=== PATIENT | male | born 1990 | race Two or more races ===

== ENCOUNTER 2024-04-15 16:36 | Emergency (ER) | payer OTHER ==
[~2024-04-15] VITALS: Ht 172.7 cm; Wt 87.0 kg
[2024-04-15 16:42] VITALS: TEMP 98.9
[2024-04-15] MEDS ORDERED: DIVA-153 PO (16:42)
[2024-04-15] MEDS ORDERED: DIPH-1243 PO (16:42)
[2024-04-15 17:40] LABS: BASOPHILS % (AUTO) 1.1 % (0.0-2.0); EOSINOPHILS % (AUTO) 1.3 % (1.0-6.0); LYMPHOCYTES # (AUTO) 1.6 K/uL (1.0-4.8); LYMPHOCYTES % (AUTO) 16.5 % (22.0-44.0); MEAN CORPUSCULAR HEMOGLOBIN 33.1 pg (26.0-34.0); MEAN CORPUSCULAR HGB CONC 33.3 G/dL (31.0-37.0); MEAN CORPUSCULAR VOLUME 99 fL (80-100); MONOCYTES # (AUTO) 0.9 K/uL (0.1-1.0); MONOCYTES % (AUTO) 9.3 % (2.0-9.0); NEUTROPHILS # (AUTO) 6.9 K/uL (1.8-7.7); NEUTROPHILS % (AUTO) 71.8 % (40.0-70.0); PLATELET COUNT (AUTO) 288 K/uL (150-450); RED BLOOD CELL COUNT(AUTO) 3.93 MIL/uL (4.50-5.90); WHITE BLOOD COUNT (AUTO) 9.6 K/uL (4.5-11.0)
[2024-04-15 17:51] LABS: ANION GAP 3 mmol/L (8-16); CARBON DIOXIDE 32 mmol/L (22-29); CHLORIDE 105 mmol/L (98-107); CREATININE 0.72 mg/dL (0.60-1.30); GLOMERULAR FILTR. RATE CALC > 60 mL/min (>60); GLUCOSE,RANDOM 109 mg/dL (70-110); POTASSIUM 3.7 mmol/L (3.5-5.1); SODIUM SERUM 140 mmol/L (136-145); UREA NITROGEN, BLOOD 15 mg/dL (7-18)
[2024-04-15 17:57] LABS: ALANINE AMINOTRANSFERASE 27 U/L (12-78); ALBUMIN 3.2 g/dL (3.4-5.0); ALKALINE PHOSPHATASE 63 U/L (46-116); ASPARTATE AMINOTRANSFERASE 12 U/L (15-37); BILIRUBIN,TOTAL 0.1 mg/dL (0.1-1.0); TOTAL PROTEIN, SERUM 6.5 g/dL (6.4-8.2); VALPROIC ACID 10 mcg/mL (50-100)
[2024-04-15 18:00] LABS: ALCOHOL, BLOOD (SERUM) < 3 mg/dL (0-10); BILIRUBIN,DIRECT < 0.05 mg/dL (0.00-0.20)
[2024-04-15 19:30] VITALS: BP 116/63; PULSE 67; RESP 17; O2SAT 98
== END 2024-04-15 21:19 | disposition home or self-care (01) ==
LOC: EMS 16:36
DX: F20.9 Schizophrenia, unspecified (principal)
CPT/HCPCS: 99284; 80048; 80076; 80164; 85025; 36415; 93005; G0480

== ENCOUNTER 2024-04-17 12:01 | Inpatient (IN) | payer MEDICAID, OTHER ==
[~2024-04-17] VITALS: Ht 167.6 cm; Wt 65.3 kg
[~2024-04-17 12:01] MED LIST: DIPH-1243 PO; DIVA-153 PO
[2024-04-17 14:55] LABS: BASOPHILS % (AUTO) 0.7 % (0.0-2.0); EOSINOPHILS % (AUTO) 0.4 % (1.0-6.0); HEMATOCRIT 44.1 % (41-53); HEMOGLOBIN 14.8 g/dL (13.5-17.5); LYMPHOCYTES # (AUTO) 1.7 K/uL (1.0-4.8); LYMPHOCYTES % (AUTO) 11.7 % (22.0-44.0); MEAN CORPUSCULAR HGB CONC 33.5 G/dL (31.0-37.0); MEAN CORPUSCULAR VOLUME 99 fL (80-100); MONOCYTES # (AUTO) 0.9 K/uL (0.1-1.0); MONOCYTES % (AUTO) 6.2 % (2.0-9.0); NEUTROPHILS # (AUTO) 12.1 K/uL (1.8-7.7); PLATELET COUNT (AUTO) 380 K/uL (150-450); RED BLOOD CELL COUNT(AUTO) 4.48 MIL/uL (4.50-5.90)
[2024-04-17 15:09] LABS: ANION GAP 11 mmol/L (8-16); CALCIUM, TOTAL 9.1 mg/dL (8.8-10.5); CARBON DIOXIDE 26 mmol/L (22-29); CHLORIDE 101 mmol/L (98-107); CREATININE 0.49 mg/dL (0.60-1.30); GLOMERULAR FILTR. RATE CALC > 60 mL/min (>60); GLUCOSE,RANDOM 108 mg/dL (70-110); POTASSIUM 3.9 mmol/L (3.5-5.1); SODIUM SERUM 138 mmol/L (136-145); UREA NITROGEN, BLOOD 12 mg/dL (7-18)
[2024-04-17 15:19] LABS: ALCOHOL, BLOOD (SERUM) < 3 mg/dL (0-10)
[2024-04-17 15:58] LABS: COVID AG,FIA SOURCE NASAL SWAB
[2024-04-17 16:14] LABS: APPEARANCE,URINE CLEAR (CLEAR); BILIRUBIN,URINE NEGATIVE (NEGATIVE); COLOR,URINE LIGHT YELLOW (YELLOW); GLUCOSE, URINE (UA) NEGATIVE (NEGATIVE); KETONES,URINE NEGATIVE (NEGATIVE); LEUKOCYTE ESTERASE ,URINE NEGATIVE (NEGATIVE); NITRATE,URINE NEGATIVE (NEGATIVE); OCCULT BLOOD,URINE NEGATIVE (NEGATIVE); PROTEIN,URINE NEGATIVE (NEGATIVE); SPECIFIC GRAVITIY, URINE 1.023 (1.003-1.030); UROBILINOGEN,URINE <=1.0 mg/dL (<=1.0)
[2024-04-17 16:23] LABS: AMPHET/METH SCREEN,URINE NEGATIVE (NEGATIVE); BARBITURATE SCREEN, URINE NEGATIVE (NEGATIVE); BENZODIAZEPINES SCREEN,URINE NEGATIVE (NEGATIVE); CANNABINOID SCREEN,URINE NEGATIVE (NEGATIVE); COCAINE SCREEN,URINE NEGATIVE (NEGATIVE); METHADONE SCREEN, URINE NEGATIVE (NEGATIVE); OPIATE SCREEN,URINE NEGATIVE (NEGATIVE); PHENCYCLIDINE SCREEN,URINE NEGATIVE (NEGATIVE)
[2024-04-17 16:24] LABS: ALCOHOL, URINE DRUG SCREEN NEGATIVE (NEGATIVE)
[2024-04-17 16:58] LABS: SARS-COV2 (COVID) ANTIGEN,FIA Negative (Negative)
[2024-04-17 18:26] VITALS: O2SAT 99
[2024-04-17] MEDS: HALOPERIDOL 5 MG TABLET PO PRN (19:33)
[2024-04-17] MEDS: LORazepam 2 MG TABLET PO PRN (19:33)
[2024-04-17 22:16] VITALS: BP 127/85; PULSE 96; RESP 18; TEMP 97.8; O2SAT 97
[2024-04-17] MEDS: ZOLPIDEM TARTRATE 10 MG TABLET PO PRN (22:30)
[2024-04-18] MEDS: INFLUENZA VIRUS VACCINE TVS (6MO+) 2024-25/PF 45 MCG/0.5 ML SYRINGE IM. ONE (01:40)
[2024-04-18 08:18] VITALS: BP 121/73; PULSE 98; RESP 16; TEMP 98.3; O2SAT 98
[2024-04-18] MEDS ORDERED: CloNIDine HCL 0.1 MG TABLET PO PRN (11:45)
[2024-04-18] MEDS ORDERED: BACITRACIN 28 GM OINTMENT TP PRN (11:45)
[2024-04-18] MEDS ORDERED: LOPERAMIDE HCL 2 MG CAPSULE PO PRN (11:45)
[2024-04-18] MEDS ORDERED: DOCUSATE SODIUM 100 MG CAPSULE PO PRN (11:45)
[2024-04-18] MEDS ORDERED: ONDANSETRON 4 MG TABLET PO PRN (11:45)
[2024-04-18] MEDS ORDERED: ACETAMINOPHEN 325 MG TABLET PO PRN (11:45)
[2024-04-18] MEDS ORDERED: OMEPRAZOLE 20 MG CAPSULE PO PRN (11:45)
[2024-04-18] MEDS ORDERED: MAG HYDROX/ALUMINUM HYD/SIMETH ES 30 ML SUSPENSION UDCUP PO PRN (11:45)
[2024-04-18] MEDS ORDERED: PETROLATUM,WHITE 28 GM JELLY TP PRN (11:45)
[2024-04-18] MEDS ORDERED: ALBUTEROL SULFATE HFA 90 MCG/PUFF 8 GM INHALER IH PRN (11:45)
[2024-04-18] MEDS ORDERED: BENZOCAINE/MENTHOL LOZENGE PO PRN (11:45)
[2024-04-18] MEDS ORDERED: MAGNESIUM HYDROXIDE SUSPENSION 30 ML UDCUP PO PRN (11:45)
[2024-04-18] MEDS ORDERED: IBUPROFEN 600 MG TABLET PO PRN (11:45)
[2024-04-18 21:05] VITALS: BP 133/82; PULSE 87; RESP 15; TEMP 97.2; O2SAT 96
[2024-04-18] MEDS: OLANZapine 10 MG TABLET PO SCH (21:41)
[2024-04-19 08:00] VITALS: BP 121/65; PULSE 99; RESP 18; TEMP 96.5; O2SAT 98
[2024-04-19 09:07] LABS: EOSINOPHILS % (AUTO) 2.5 % (1.0-6.0); HEMATOCRIT 41.7 % (41-53); HEMOGLOBIN 14.1 g/dL (13.5-17.5); LYMPHOCYTES # (AUTO) 1.7 K/uL (1.0-4.8); LYMPHOCYTES % (AUTO) 22.3 % (22.0-44.0); MEAN CORPUSCULAR HEMOGLOBIN 33.6 pg (26.0-34.0); MEAN CORPUSCULAR HGB CONC 33.7 G/dL (31.0-37.0); MEAN CORPUSCULAR VOLUME 100 fL (80-100); MONOCYTES # (AUTO) 0.6 K/uL (0.1-1.0); MONOCYTES % (AUTO) 7.7 % (2.0-9.0); NEUTROPHILS # (AUTO) 5.1 K/uL (1.8-7.7); NEUTROPHILS % (AUTO) 66.5 % (40.0-70.0); PLATELET COUNT (AUTO) 306 K/uL (150-450); RED BLOOD CELL COUNT(AUTO) 4.19 MIL/uL (4.50-5.90); RED CELL DISTRIBUTION WIDTH 13.4 % (11.5-14.5); WHITE BLOOD COUNT (AUTO) 7.7 K/uL (4.5-11.0)
[2024-04-19 09:37] LABS: ALANINE AMINOTRANSFERASE 22 U/L (12-78); ALBUMIN 3.3 g/dL (3.4-5.0); ALKALINE PHOSPHATASE 64 U/L (46-116); ANION GAP 0 mmol/L (8-16); ASPARTATE AMINOTRANSFERASE 12 U/L (15-37); BILIRUBIN,TOTAL 0.2 mg/dL (0.1-1.0); CALCIUM, TOTAL 8.8 mg/dL (8.8-10.5); CARBON DIOXIDE 31 mmol/L (22-29); CHLORIDE 110 mmol/L (98-107); CREATININE 0.63 mg/dL (0.60-1.30); GLOMERULAR FILTR. RATE CALC > 60 mL/min (>60); GLUCOSE,RANDOM 89 mg/dL (70-110); POTASSIUM 3.7 mmol/L (3.5-5.1); SODIUM SERUM 141 mmol/L (136-145); TOTAL PROTEIN, SERUM 6.6 g/dL (6.4-8.2); UREA NITROGEN, BLOOD 13 mg/dL (7-18)
[2024-04-19 11:45] LABS: GLUCOMETER DEV NAME(LOC) POC.BV; POC SARS-COV2 AG, FIA NEGATIVE (NEGATIVE)
[2024-04-19 20:16] VITALS: BP 143/89; PULSE 86; RESP 16; TEMP 97; O2SAT 97
[2024-04-20 08:13] VITALS: BP 109/69; PULSE 72; RESP 18; TEMP 97.1; O2SAT 98
[2024-04-20 20:40] VITALS: BP 132/88; PULSE 90; RESP 18; TEMP 97.6; O2SAT 96
[2024-04-21 08:04] VITALS: BP 132/87; PULSE 78; RESP 17; TEMP 97.9; O2SAT 99
[2024-04-21 20:31] VITALS: BP 123/68; PULSE 61; RESP 18; TEMP 98; O2SAT 96
[2024-04-22 08:13] VITALS: BP 122/70; PULSE 77; RESP 18; TEMP 98.1; O2SAT 98
[2024-04-22 20:09] VITALS: BP 132/67; PULSE 80; RESP 18; TEMP 97.6; O2SAT 97
[2024-04-23] MEDS ORDERED: OLAN10TA74 PO (08:28)
[2024-04-23 08:56] VITALS: BP 118/58; PULSE 83; RESP 18; TEMP 97.5; O2SAT 96
== END 2024-04-23 16:33 | disposition home or self-care (01) | DRG 750 ==
LOC: EMS 12:02 → B2S 16:18
PROVIDERS: ADMIT Psychiatry & Neurology Psychiatry; ATTEND Psychiatry & Neurology Psychiatry
DX: F25.0 Schizoaffective disorder, bipolar type (principal); R45.851 Suicidal ideations; D72.829 Elevated white blood cell count, unspecified; Z20.822 Contact with and (suspected) exposure to COVID-19; F41.9 Anxiety disorder, unspecified; G47.00 Insomnia, unspecified; K59.00 Constipation, unspecified
CPT/HCPCS: 80048; 80053; 80307; 81003; 85025; 99285; G0480

== ENCOUNTER 2024-10-14 14:02 | Emergency (ER) | payer MEDICAID, OTHER ==
[~2024-10-14] VITALS: Ht 167.6 cm; Wt 77.3 kg
[~2024-10-14 14:02] MED LIST changes: -DIPH-1243 PO; -DIVA-153 PO; +OLAN10TA74 PO
[2024-10-14 14:38] VITALS: BP 121/48; PULSE 62; RESP 18; TEMP 98.2; O2SAT 98
[2024-10-14] MEDS: PROPARACAINE HCL 0.5% 15 ML OPHTHALMIC SOLUTION OD ONE (16:28)
[2024-10-14] MEDS: FLUORESCEIN SODIUM 1 MG STRIP OU ONE (16:29)
[2024-10-14] MEDS ORDERED: OFLO5DRO49 OD (16:50)
== END 2024-10-14 17:08 | disposition home or self-care (01) ==
LOC: EMS 14:02
DX: S05.01XA Injury of conjunctiva and corneal abrasion without foreign body, right eye, initial encounter (principal); F25.9 Schizoaffective disorder, unspecified; X58.XXXA Exposure to other specified factors, initial encounter; Y93.89 Activity, other specified; Y92.89 Other specified places as the place of occurrence of the external cause; Y99.8 Other external cause status
CPT/HCPCS: 99283

== ENCOUNTER 2025-04-07 20:26 | Emergency (ER) | payer OTHER ==
[~2025-04-07] VITALS: Ht 167.6 cm; Wt 76.4 kg
[~2025-04-07 20:26] MED LIST changes: +OFLO5DRO49 OD; -OLAN10TA74 PO
[2025-04-07 20:55] VITALS: TEMP 98.8
[2025-04-07] MEDS: SODIUM CHLORIDE 0.9% 1,000 ML IV ONE (22:35)
[2025-04-07] MEDS: BENZTROPINE MESYLATE 2 MG/2 ML VIAL IM ONE (22:35)
[2025-04-07 22:38] VITALS: BP 127/75; PULSE 84; RESP 18; O2SAT 97
[2025-04-08] MEDS ORDERED: BENZ-247 PO (01:01)
== END 2025-04-08 01:20 | disposition home or self-care (01) ==
LOC: EMS 20:27
DX: G24.02 Drug induced acute dystonia (principal); F20.9 Schizophrenia, unspecified; F31.9 Bipolar disorder, unspecified; F41.9 Anxiety disorder, unspecified; Z79.899 Other long term (current) drug therapy
CPT/HCPCS: 99283; 96360; 96361; 96372; J0515; J7030

== ENCOUNTER 2025-04-09 18:48 | Emergency (ER) | payer OTHER ==
[~2025-04-09] VITALS: Ht 170.2 cm; Wt 79.5 kg
[~2025-04-09 18:48] MED LIST changes: +BENZ-247 PO
[2025-04-09 18:50] VITALS: BP 152/96; PULSE 88; RESP 18; TEMP 98.9; O2SAT 98
[2025-04-09] MEDS: LORazepam 2 MG/ML VIAL IM ONE (20:05)
[2025-04-09 20:09] LABS: PLATELET COUNT (AUTO) 271 K/uL (150-450); RED BLOOD CELL COUNT(AUTO) 4.57 MIL/uL (4.50-5.90); RED CELL DISTRIBUTION WIDTH 12.7 % (11.5-14.5); WHITE BLOOD COUNT (AUTO) 9.0 K/uL (4.5-11.0)
[2025-04-09 20:20] LABS: CALCIUM, TOTAL 8.4 mg/dL (8.8-10.5); CREATININE 0.39 mg/dL (0.60-1.30); GLOMERULAR FILTR. RATE CALC > 60 mL/min (>60); GLUCOSE,RANDOM 107 mg/dL (70-110); SODIUM SERUM 140 mmol/L (136-145); UREA NITROGEN, BLOOD 11 mg/dL (7-18)
[2025-04-09 20:22] LABS: ASPARTATE AMINOTRANSFERASE 13 U/L (15-37); TOTAL PROTEIN, SERUM 7.0 g/dL (6.4-8.2)
[2025-04-09 20:27] LABS: ALCOHOL, BLOOD (SERUM) < 3 mg/dL (0-10)
[2025-04-09 20:52] LABS: APPEARANCE,URINE CLEAR (CLEAR); GLUCOSE, URINE (UA) NEGATIVE (NEGATIVE); LEUKOCYTE ESTERASE ,URINE NEGATIVE (NEGATIVE); NITRATE,URINE NEGATIVE (NEGATIVE); OCCULT BLOOD,URINE NEGATIVE (NEGATIVE); PH,URINE DRUG SCREEN 6.5 (5.0-8.0); SPECIFIC GRAVITIY, URINE 1.029 (1.003-1.030)
[2025-04-09] MEDS: POTASSIUM CHLORIDE 20 MEQ ER TABLET PO ONE (20:56)
[2025-04-09 21:52] LABS: ALCOHOL, URINE DRUG SCREEN NEGATIVE (NEGATIVE); AMPHET/METH SCREEN,URINE NEGATIVE (NEGATIVE); BARBITURATE SCREEN, URINE NEGATIVE (NEGATIVE); CANNABINOID SCREEN,URINE NEGATIVE (NEGATIVE); COCAINE SCREEN,URINE NEGATIVE (NEGATIVE); METHADONE SCREEN, URINE NEGATIVE (NEGATIVE)
== END 2025-04-09 21:59 | disposition home or self-care (01) ==
LOC: EMS 18:50
DX: F20.9 Schizophrenia, unspecified (principal); F31.9 Bipolar disorder, unspecified; M62.838 Other muscle spasm; F41.9 Anxiety disorder, unspecified; G24.02 Drug induced acute dystonia; Z79.899 Other long term (current) drug therapy
CPT/HCPCS: 99283; 80053; 81003; 85025; 36415; 96372; 80307; G0480; J2060

== ENCOUNTER 2025-04-13 08:25 | Inpatient (IN) | payer MEDICAID, OTHER ==
[~2025-04-13] VITALS: Ht 167.6 cm; Wt 74.8 kg
[2025-04-13] MEDS ORDERED: DIVA-112 PO (08:37)
[2025-04-13] MEDS ORDERED: HALO2ORA11 PO (08:37)
[2025-04-13] MEDS ORDERED: PROP10TA73 PO (08:37)
[2025-04-13] MEDS ORDERED: BENZ0.5T52 PO (08:37)
[2025-04-13 08:59] LABS: PLATELET COUNT (AUTO) 280 K/uL (150-450); RED BLOOD CELL COUNT(AUTO) 4.66 MIL/uL (4.50-5.90); RED CELL DISTRIBUTION WIDTH 13.0 % (11.5-14.5); WHITE BLOOD COUNT (AUTO) 6.3 K/uL (4.5-11.0)
[2025-04-13 09:07] LABS: CALCIUM, TOTAL 8.4 mg/dL (8.8-10.5); CREATININE 0.58 mg/dL (0.60-1.30); GLOMERULAR FILTR. RATE CALC > 60 mL/min (>60); GLUCOSE,RANDOM 105 mg/dL (70-110); SODIUM SERUM 144 mmol/L (136-145); UREA NITROGEN, BLOOD 12 mg/dL (7-18)
[2025-04-13] MEDS: LORazepam 2 MG/ML VIAL IM ONE (09:12)
[2025-04-13 09:20] LABS: ASPARTATE AMINOTRANSFERASE 9 U/L (15-37); TOTAL PROTEIN, SERUM 7.1 g/dL (6.4-8.2); VALPROIC ACID 26 mcg/mL (50-100)
[2025-04-13 09:31] LABS: COVID AG,FIA SOURCE NPH
[2025-04-13 09:40] LABS: ALCOHOL, BLOOD (SERUM) < 3 mg/dL (0-10)
[2025-04-13 09:59] LABS: SARS-COV2 (COVID) ANTIGEN,FIA Negative (Negative)
[2025-04-13 10:25] LABS: APPEARANCE,URINE CLEAR (CLEAR); GLUCOSE, URINE (UA) NEGATIVE (NEGATIVE); LEUKOCYTE ESTERASE ,URINE NEGATIVE (NEGATIVE); NITRATE,URINE NEGATIVE (NEGATIVE); OCCULT BLOOD,URINE NEGATIVE (NEGATIVE); PH,URINE DRUG SCREEN 7.0 (5.0-8.0); SPECIFIC GRAVITIY, URINE 1.031 (1.003-1.030)
[2025-04-13 10:29] LABS: AMPHET/METH SCREEN,URINE NEGATIVE (NEGATIVE); BARBITURATE SCREEN, URINE NEGATIVE (NEGATIVE); CANNABINOID SCREEN,URINE NEGATIVE (NEGATIVE); COCAINE SCREEN,URINE NEGATIVE (NEGATIVE); METHADONE SCREEN, URINE NEGATIVE (NEGATIVE)
[2025-04-13 10:30] LABS: ALCOHOL, URINE DRUG SCREEN NEGATIVE (NEGATIVE)
[2025-04-13 11:11] VITALS: O2SAT 96
[2025-04-13] MEDS ORDERED: OLAN20TA20 PO (11:26)
[2025-04-13] MEDS ORDERED: HALO10TA21 PO (11:26)
[2025-04-13 17:00] VITALS: BP 126/88; PULSE 75; RESP 18; TEMP 98.2; O2SAT 100
[2025-04-13] MEDS ORDERED: INFLUENZA VIRUS VACCINE TVS (6MO+) 2025-26/PF 45 MCG/0.5 ML SYRINGE IM. ONE (17:45)
[2025-04-13 20:13] VITALS: BP 118/77; PULSE 67; RESP 18; TEMP 97.7; O2SAT 99
[2025-04-13] MEDS: ZOLPIDEM TARTRATE 10 MG TABLET PO PRN (22:22)
[2025-04-13] MEDS ORDERED: IBUPROFEN 600 MG TABLET PO PRN (23:45)
[2025-04-13] MEDS ORDERED: ALBUTEROL SULFATE HFA 90 MCG/PUFF 8 GM INHALER IH PRN (23:45)
[2025-04-13] MEDS ORDERED: ACETAMINOPHEN 325 MG TABLET PO PRN (23:45)
[2025-04-13] MEDS ORDERED: ONDANSETRON 4 MG TABLET PO PRN (23:45)
[2025-04-13] MEDS ORDERED: MAG HYDROX/ALUMINUM HYD/SIMETH ES 30 ML SUSPENSION UDCUP PO PRN (23:45)
[2025-04-13] MEDS ORDERED: BENZOCAINE/MENTHOL [CEPACOL] LOZENGE PO PRN (23:45)
[2025-04-13] MEDS ORDERED: LOPERAMIDE HCL 2 MG CAPSULE PO PRN (23:45)
[2025-04-13] MEDS ORDERED: MAGNESIUM HYDROXIDE SUSPENSION 30 ML UDCUP PO PRN (23:45)
[2025-04-13] MEDS ORDERED: OMEPRAZOLE 20 MG CAPSULE PO PRN (23:45)
[2025-04-13] MEDS ORDERED: PETROLATUM,WHITE 28 GM JELLY TP PRN (23:45)
[2025-04-14 08:20] VITALS: BP 139/98; PULSE 80; RESP 18; TEMP 98.2; O2SAT 98
[2025-04-14 20:22] VITALS: BP 139/97; PULSE 85; RESP 18; TEMP 98.5; O2SAT 98
[2025-04-14] MEDS: DOCUSATE SODIUM 100 MG CAPSULE PO PRN (20:45)
[2025-04-15 08:42] VITALS: BP 134/79; PULSE 85; RESP 16; TEMP 98.1; O2SAT 96
[2025-04-15] MEDS: LORazepam 2 MG/ML VIAL IM ONE (13:07)
[2025-04-15 20:16] VITALS: BP 132/81; PULSE 73; RESP 17; TEMP 97.8; O2SAT 98
[2025-04-15] MEDS: BENZTROPINE MESYLATE 2 MG TABLET PO SCH (20:44)
[2025-04-16 08:46] VITALS: BP 120/67; PULSE 81; RESP 18; TEMP 98.4; O2SAT 96
[2025-04-16] MEDS: PROPRANOLOL HCL 10 MG TABLET PO SCH (09:14)
[2025-04-16 16:37] VITALS: BP 126/80; PULSE 62; RESP 18
[2025-04-16] MEDS: BACITRACIN 28 GM OINTMENT TP PRN (19:10)
[2025-04-16 20:09] VITALS: BP 115/70; PULSE 85; RESP 18; TEMP 98.7; O2SAT 98
[2025-04-17 08:25] VITALS: BP 134/93; PULSE 74; RESP 18; TEMP 98.1; O2SAT 98
[2025-04-17 16:46] VITALS: BP 112/74; RESP 18
[2025-04-17 20:27] VITALS: BP 117/71; PULSE 72; RESP 18; TEMP 98.1; O2SAT 99
[2025-04-18 08:43] VITALS: BP 136/83; PULSE 90; RESP 16; TEMP 97.5; O2SAT 98
[2025-04-18 20:27] VITALS: BP 127/76; PULSE 89; RESP 18; TEMP 99; O2SAT 97
[2025-04-18] MEDS: ZOLPIDEM TARTRATE 10 MG TABLET PO SCH (20:48)
[2025-04-19 08:19] VITALS: BP 122/69; PULSE 60; RESP 17; TEMP 97.5; O2SAT 99
[2025-04-19 20:14] VITALS: BP 125/78; PULSE 81; RESP 18; TEMP 98.8; O2SAT 97
[2025-04-20 08:36] VITALS: BP 127/90; PULSE 68; RESP 16; TEMP 97.7; O2SAT 99
[2025-04-20 16:06] VITALS: BP 117/79; RESP 17; O2SAT 98
[2025-04-20 20:09] VITALS: BP 123/77; PULSE 72; RESP 18; TEMP 97.8; O2SAT 98
[2025-04-21 08:14] VITALS: BP 134/98; PULSE 89; RESP 18; TEMP 99.2; O2SAT 97
[2025-04-21 08:29] VITALS: TEMP 98.6
[2025-04-21] MEDS ORDERED: OLAN10TA74 PO (08:37)
[2025-04-21] MEDS ORDERED: BENZ2TAB84 PO (08:38)
== END 2025-04-21 13:14 | disposition home or self-care (01) | DRG 750 ==
LOC: EMS 08:25 → B2S 16:36 → EMS 16:37 → B2S 16:37
PROVIDERS: ADMIT Psychiatry & Neurology Psychiatry; ATTEND Psychiatry & Neurology Psychiatry
DX: F20.9 Schizophrenia, unspecified (principal); R45.851 Suicidal ideations; F41.9 Anxiety disorder, unspecified; Z20.822 Contact with and (suspected) exposure to COVID-19; G47.00 Insomnia, unspecified; K59.00 Constipation, unspecified
CPT/HCPCS: 80053; 80164; 80307; 81003; 84443; 85025; 90686; 96372; 99285; G0480; J1200; J2060

== ENCOUNTER 2025-04-22 11:09 | Emergency (ER) | payer MEDICAID, OTHER ==
[~2025-04-22] VITALS: Ht 162.6 cm; Wt 73.6 kg
[~2025-04-22 11:09] MED LIST changes: -BENZ-247 PO; +BENZ2TAB84 PO; -OFLO5DRO49 OD; +OLAN10TA74 PO; +PROP10TA73 PO
[2025-04-22 11:12] VITALS: TEMP 97.7
[2025-04-22 12:25] LABS: PLATELET COUNT (AUTO) 316 K/uL (150-450); RED BLOOD CELL COUNT(AUTO) 4.82 MIL/uL (4.50-5.90); RED CELL DISTRIBUTION WIDTH 12.8 % (11.5-14.5); WHITE BLOOD COUNT (AUTO) 8.1 K/uL (4.5-11.0)
[2025-04-22 12:40] LABS: CALCIUM, TOTAL 9.0 mg/dL (8.8-10.5); CREATININE 0.56 mg/dL (0.60-1.30); GLOMERULAR FILTR. RATE CALC > 60 mL/min (>60); GLUCOSE,RANDOM 108 mg/dL (70-110); SODIUM SERUM 143 mmol/L (136-145); UREA NITROGEN, BLOOD 13 mg/dL (7-18)
[2025-04-22] MEDS ORDERED: BENZTROPINE MESYLATE 2 MG TABLET PO ONE (14:00)
[2025-04-22 14:53] VITALS: BP 121/78; PULSE 85; RESP 17; O2SAT 98
== END 2025-04-22 15:02 | disposition home or self-care (01) ==
LOC: EMS 11:13
DX: F25.0 Schizoaffective disorder, bipolar type (principal); F41.9 Anxiety disorder, unspecified; G47.00 Insomnia, unspecified; Z76.0 Encounter for issue of repeat prescription; Z79.899 Other long term (current) drug therapy
CPT/HCPCS: 80048; 85025; 99283